=== PATIENT | female | born 1940 ===

== ENCOUNTER 2017-12-27 09:22 | Emergency (ER) | payer OTHER ==
[~2017-12-27] VITALS: Ht 170.2 cm; Wt 40.8 kg
[~2017-12-27 09:22] MED LIST: DIOVAN40 MG PO
[2017-12-27] MEDS ORDERED: LOSARTAN POTASS50 MG (10:21)
[2017-12-27] MEDS ORDERED: ALDACTONE100 MG (10:22)
[2017-12-27] MEDS ORDERED: FUROSEMIDE40 MG (10:22)
[2017-12-27] MEDS ORDERED: WELLBUTRIN XL150 M1 (10:22)
[2017-12-28] MEDS ORDERED: PYRIDIUM DS200 MG PO ×2 (06:37)
[2017-12-28] MEDS ORDERED: CIPRO500 MG PO (06:37)
== END 2017-12-28 06:33 | disposition home or self-care (01) ==
LOC: ER 09:22
DX: B37.3 Candidiasis of vulva and vagina (principal); N39.0 Urinary tract infection, site not specified; R82.79 Other abnormal findings on microbiological examination of urine